=== PATIENT | female | born 1960 ===

== ENCOUNTER 2019-06-05 06:10 | Day surgery (SDC) | payer OTHER ==
[~2019-06-05 06:10] MED LIST: CIPRO750 MG PO; CYMBALTA20 MG PO; DOXYCYCLINE HY100 MG PO; GABAPENTIN400 MG PO; INTESTINEX1 CAP PO; NEURONTIN800 MG PO; PEPCID20 MG PO; TAMOXIFEN CITRA20 MG PO; ZITHROMAX500 MG PO
== END 2019-06-05 13:50 | disposition home or self-care (01) ==
LOC: CIR.AMB 06:10
PROVIDERS: Plastic Surgery
PROC: 0HHT0NZ Insertion of Tissue Expander into Right Breast, Open Approach (ICD-10-PCS; principal; 2019-06-05 07:00)
DX: C50.911 Malignant neoplasm of unspecified site of right female breast (principal); Z90.11 Acquired absence of right breast and nipple

== ENCOUNTER 2019-09-15 06:38 | Day surgery (SDC) | payer OTHER | END 2019-09-15 16:50 | disposition home or self-care (01) | LOC: CIR.AMB 06:38 | PROVIDERS: Plastic Surgery | PROC: 0HRT0JZ Replacement of Right Breast with Synthetic Substitute, Open Approach (ICD-10-PCS; 2019-09-15) | PROC: 0HQU0ZZ Repair Left Breast, Open Approach (ICD-10-PCS; 2019-09-15) | PROC: 0H0T0JZ Alteration of Right Breast with Synthetic Substitute, Open Approach (ICD-10-PCS; 2019-09-15) | PROC: 0HPT0NZ Removal of Tissue Expander from Right Breast, Open Approach (ICD-10-PCS; principal; 2019-09-15 12:15) | DX: N65.1 Disproportion of reconstructed breast (principal); Z90.11 Acquired absence of right breast and nipple ==